=== PATIENT | male | born 1995 | race Caucasian/White ===

== ENCOUNTER 2021-01-12 21:14 | Emergency (ER) | payer MEDICAID ==
[~2021-01-12] VITALS: Ht 172.7 cm; Wt 99.8 kg
[2021-01-12 21:29] VITALS: BP 120/70
--- NOTE | 2021-01-12 21:32 | NUR ---
TO BED AMBULATORY
--- NOTE | 2021-01-12 21:45 | NUR ---
PATIENT 25 Y/O MALE BIB SELF FOR C/O 3RD L DIGIT PAIN S/P "A CABINET FALLING ON IT" X 6 HOURS AGO. PATIENT NOTED WITH SWELLING, REDNESS, NOTED. PATIENT NOTED WITH PUNCTURE ON LATERAL AND MEDIAL SIDE OF 3RD DIGIT. BLEEDING CONTROLLED. PATIENT STATES UNABLE TO MOVE FINGER D/T PAIN. PATIENT CMS INTACT, CAP REFILL <3. PAIN 10/10. PATIENT DENIES TAKING OTC MEDICATIONS FOR PAIN. MEDHX: DENIES ALLERGIES: NKA
[2021-01-12] MEDS ORDERED: ACETAMINOPHEN 325 MG TAB PO ONE (22:50)
[2021-01-12] MEDS ORDERED: LIDOCAINE MPF 1% 10 MG/ML VIAL INJ ONE (23:15)
--- NOTE | 2021-01-12 23:41 | NUR ---
ERMD AT BEDSIDE PERFORMING SURTURE PROCEDURE WITH PATIENT.
[2021-01-13] MEDS ORDERED: CEPH-588 PO (00:19)
[2021-01-13] MEDS ORDERED: ACET-2619 PO (00:20)
[2021-01-13 00:42] VITALS: BP 119/72
--- NOTE | 2021-01-13 00:43 | NUR ---
Patient discharged with v/s stable. Written and verbal after care instructions given and explained. Patient alert, oriented and verbalized understanding of instructions. Ambulatory with steady gait. All questions addressed prior to discharge. ID band removed. Patient advised to follow up with PMD. Rx of TYLENOL AND KEFLEX given. Patient educated on indication of medication including possible reaction and side effects. Opportunity to ask questions provided and answered.
== END 2021-01-13 00:42 | disposition home or self-care (01) ==
LOC: MED 21:14
DX: S61.213A Laceration without foreign body of left middle finger without damage to nail, initial encounter (principal); W22.8XXA Striking against or struck by other objects, initial encounter; Y93.89 Activity, other specified; Y92.89 Other specified places as the place of occurrence of the external cause; Y99.8 Other external cause status
CPT/HCPCS: 12002; 73140; 90471; 90715; 99284; J2001

== ENCOUNTER 2021-01-20 15:39 | Emergency (ER) | payer MEDICAID ==
[~2021-01-20] VITALS: Ht 172.7 cm; Wt 99.8 kg
[~2021-01-20 15:39] MED LIST: ACET-2619 PO; CEPH-588 PO
[2021-01-20 15:44] VITALS: BP 135/89
--- NOTE | 2021-01-20 15:51 | NUR ---
PT AMB TO BED 9.
[2021-01-20] MEDS ORDERED: BACITRACIN OINT 500 UNITS/GM PKT TP ONE (15:55)
--- NOTE | 2021-01-20 16:00 | NUR ---
Dressing placed after suture removal. pt truong well.
[2021-01-20 16:15] VITALS: BP 135/89
--- NOTE | 2021-01-20 16:16 | NUR ---
Patient discharged with v/s stable. Written and verbal after care instructions given and explained. Patient verbalized understanding. Ambulatory with steady gait. All questions addressed prior to discharge. Advised to follow up with PMD.
== END 2021-01-20 16:16 | disposition home or self-care (01) ==
LOC: MED 15:39
DX: S61.213D Laceration without foreign body of left middle finger without damage to nail, subsequent encounter (principal); Z48.00 Encounter for change or removal of nonsurgical wound dressing; X58.XXXD Exposure to other specified factors, subsequent encounter
CPT/HCPCS: 99282